=== PATIENT | female | born 1990 | race Caucasian/White ===

== ENCOUNTER → 2020-07-15 | Day surgery (SDC) | payer BC ==
--- NOTE | 2020-07-15 10:59 | RAD REPORT ---
EXAM DESCRIPTION: US - Breast Core BX w/US Guidance - 07/15/2020 10:40 am CLINICAL HISTORY: N63.10 COMPARISON: Ultrasound April 2020 TECHNIQUE: The patient presents for ultrasound-guided biopsy of a previously evaluated 5 centimeter retroareolar breast mass. The ultrasound-guided core biopsy procedure, risks and alternatives were discussed with the patient i n detail. After answering all questions, both oral and written consent were obtained. Time out proced ure was performed. The patient had no contraindicated allergy or medication history. Preliminary imaging identified the retroareolar right breast mass. The right breast was prepped and d raped in the usual sterile fashion. From an inferior approach, skin and deeper tissues were anestheti zed with 1% lidocaine. Under direct sonographic visualization a 14 gauge vacuum assisted core biopsy needle was advanced and placed at the margin of the mass. There were a total of 2 core biopsies obtai carlos under direct sonographic guidance. Under direct visualization the biopsy needle and simple acquis ition were seen within the substance of the mass. At the conclusion of the procedure a localization clip was placed under sonographic guidance. Post biopsy imaging showed no hematoma or measurable bleeding within the breast. Hemostasis was obtai carlos at the skin site with a sterile bandage placed. Post procedure care and precaution instructions were given to the patient. IMPRESSION: 1. Ultrasound-guided core biopsy was performed of the right breast mass. All obtained ma terial was given to pathology for histologic assessment. 2. Post biopsy localization clip was placed under ultrasound guidance.
== END ==
LOC: DS 09:22
PROVIDERS: ATTEND Surgery
DX: N63.10 Unspecified lump in the right breast, unspecified quadrant (principal)
CPT/HCPCS: 19083; 88305